=== PATIENT | male | born 1965 | race Caucasian/White ===

== ENCOUNTER 2017-05-20 17:12 | Emergency (ER) | payer BC, MEDICAID ==
[2017-05-20] MEDS ORDERED: Sodium Chloride 0.9% 10 ML Syringe FLUSH PRN (18:23)
[2017-05-20] MEDS ORDERED: Ondansetron 4 MG/2 ML SDV IVPUSH ONE (18:23)
--- NOTE | 2017-05-20 18:27 | EDM.PDOC ---
ED HPI GENERAL MEDICAL PROBLEM - General Chief Complaint: Gastrointestinal Problem Stated Complaint: NAUSEA / VOMITING / LEGS CRAMPS Time Seen by Provider: 05/20/17 18:14 Source of Information: Reports: Patient, RN Notes Reviewed History Limitations: Reports: No Limitations - History of Present Illness INITIAL COMMENTS - FREE TEXT/NARRATIVE: 52-year-old gentleman presents to the emergency department today with complaint of nausea and vomiting as well as diarrhea, diarrhea has been ongoing for some time but the nausea and vomiting recently started 4 days ago he had 2 bouts of emesis today denies any fevers or sick contacts he does admit to night sweats with have been ongoing for the last 6 months - Related Data Allergies Allergy/AdvReac Type Severity Reaction Status Date / Time Penicillins Allergy Cannot Verified 04/19/15 07:50 Remember Home Meds: Home Meds Aspirin [Low Dose Aspirin EC] 81 mg PO DAILY 04/03/15 [History] Fenofibrate,Micronized [Lofibra] 200 mg PO DAILY 04/03/15 [History] Magnesium Oxide [Magnesium] 500 mg PO DAILY 04/03/15 [History] [place]-3 Fatty Acids/Fish Oil [Fish Oil 1,000 mg Softgel] 1 each PO DAILY [History] Ubidecarenone [Coenzyme Q10] 100 mg PO DAILY 04/03/15 [History] Vitamin B Complex [B Complex] 1 each PO DAILY 04/03/15 [History] atorvaSTATin [Lipitor] 20 mg PO DAILY 04/03/15 [History] metFORMIN [Glucophage] 500 mg PO BIDMEALS 04/03/15 [History] Multivitamin with Minerals [Multiple Vitamin] 1 tab PO DAILY 04/19/15 [History] Chlorthalidone 25 mg PO DAILY 05/20/17 [History] Lisinopril 40 mg PO DAILY 05/20/17 [History] Turmeric 05/20/17 [History] Past Medical History HEENT History: Reports: Impaired Vision Cardiovascular History: Reports: High Cholesterol, Hypertension Musculoskeletal History: Reports: Osteoarthritis Endocrine/Metabolic History: Reports: Diabetes, Type II, Obesity/BMI 30+ - Infectious Disease History Infectious Disease History: Reports: Chicken Pox, Measles - Past Surgical History HEENT Surgical History: Reports: Oral Surgery GI Surgical History: Reports: Colonoscopy Social & Family History - Tobacco Use Smoking Status *Q: Heavy Tobacco Smoker Years of Tobacco use: 35 Packs/Tins Daily: 0.5 Second Hand Smoke Exposure: No - Caffeine Use Caffeine Use: Reports: Coffee - Alcohol Use Days Per Week of Alcohol Use: 7 Number of Drinks Per Day: 6 Total Drinks Per Week: 42 - Recreational Drug Use Recreational Drug Use: Yes Recreational Drug Type: Reports: Marijuana/Hashish ED ROS GENERAL - Review of Systems Review Of Systems: See Below Constitutional: Reports: Night Sweats, Other (Scrotal swelling). Denies: Fever , Chills HEENT: Reports: No Symptoms Respiratory: Reports: No Symptoms Cardiovascular: Reports: No Symptoms GI/Abdominal: Reports: Diarrhea, Nausea, Vomiting : Reports: No Symptoms Musculoskeletal: Reports: No Symptoms Skin: Reports: No Symptoms Neurological: Reports: No Symptoms ED EXAM, GI/ABD - Physical Exam Exam: See Below Text/Narrative:: General: Male, not in any distress, alert and oriented x3 HEENT: head is atraumatic normocephalic, eyes pupils equal round reactive to light, sclera clear no conjunctivitis appreciated. Ears tympanic membranes clear and sy landmarks and light reflex are present bilaterally canals are clear. Nose no septal deviation, nares are clear, no blood present. Mouth mucosa is moist and pink no erythema or exudate noted in soft palate, tongue is midline uvula is midline, dentition is intact. Neck: Supple no thyromegaly no tracheal deviation. Nodes: Cervical nodes subclavicular nodes nontender no palpable lymphadenopathy noted. Lungs: clear to auscultation bilaterally with symmetrical respirations, no adventitious noise appreciated. CV: Regular rate and rhythm S1 and S2 appreciated no murmurs rubs or gallops noted. Abdomen: Soft, nontender, no palpable masses or organomegaly appreciated, no distention no guarding bowel sounds are present, . Genitalia exam this is a circumcised male both testes present trace edema is appreciated in the scrotum there is nontender to palpation over the testes or penis no lymphadenopathy appreciated in the groin Neuro: Cranial nerves II through XII grossly intact Skin: Warm and dry, intact Extremities: No lower extremity edema appreciated, Course - Vital Signs Last Recorded V/S: Last Vital Signs Temp 97.1 F 05/20/17 17:47 Pulse 89 05/20/17 18:55 Resp 16 05/20/17 17:47 BP 157/83 H 05/20/17 18:55 Pulse Ox 95 05/20/17 18:55 - Orders/Labs/Meds Orders: Active Orders 24 hr Category Date Time Status Peripheral IV Care [RC] . DIRECTED Care 05/20/17 18:24 Active UA W/MICROSCOPIC [URIN] Urgent Lab 05/20/17 19:33 Ordered Lactated Ringers [Ringers, Lactated] 1,000 ml Med 05/20/17 18:30 Active IV ASDIRECTED Sodium Chloride 0.9% [Saline Flush] Med 05/20/17 18:23 Active 10 ml FLUSH ASDIRECTED PRN ED Antiemetic Medication Reflex [OM.PC] Click to Edit Oth 05/20/17 18:23 Ordered Peripheral IV Insertion Adult [OM.PC] Urgent Oth 05/20/17 18:23 Ordered Medication Orders Lactated Ringer's (Ringers, Lactated) 1,000 mls @ 999 mls/hr IV ASDIRECTED KIRSTIN Last Admin: 05/20/17 18:40 Dose: 999 mls/hr Sodium Chloride (Saline Flush) 10 ml FLUSH ASDIRECTED PRN PRN Reason: Keep Vein Open Last Admin: 05/20/17 18:40 Dose: 10 ml Labs: Laboratory Tests 05/20/17 05/20/17 05/20/17 Range/Units 18:23 18:23 18:23 WBC 9.1 (4.5-11.0) K/uL RBC 4.27 L (4.30-5.90) M/uL Hgb 14.6 (12.0-15.0) g/dL Hct 37.7 L (40.0-54.0) % MCV 88 (80-98) fL MCH 34 H (27-31) pg MCHC 39 H (32-36) % Plt Count 209 (150-400) K/uL Neut % (Auto) 67 H (36-66) % Lymph % (Auto) 20 L (24-44) % [place] % (Auto) 12 H (2-6) % Eos % (Auto) 1 L (2-4) % Baso % (Auto) 0 (0-1) % Sodium 122 L (140-148) mmol/L Potassium 4.0 (3.6-5.2) mmol/L Chloride 83 L (100-108) mmol/L Carbon Dioxide 26 (21-32) mmol/L Anion Gap 17.0 H (5.0-14.0) mmol/L BUN 18 (7-18) mg/dL Creatinine 0.7 L (0.8-1.3) mg/dL Est Cr Clr Drug Dosing 131.97 mL/min Estimated GFR (MDRD) > 60 (>60) Glucose 123 H (74-106) mg/dL Lactic Acid 1.0 (0.4-2.0) mmol/L Calcium 10.1 (8.5-10.1) mg/dL Total Bilirubin 1.2 H (0.2-1.0) mg/dL AST 43 H (15-37) U/L ALT 56 (12-78) U/L Alkaline Phosphatase 56 (46-116) U/L Troponin I < 0.017 (0.000-0.056) ng/mL Total Protein 7.6 (6.4-8.2) g/dL Albumin 4.4 (3.4-5.0) g/dL Globulin 3.2 (2.3-3.5) g/dL Albumin/Globulin Ratio 1.4 (1.2-2.2) Lipase 224 (73-393) U/L TSH, Ultra Sensitive (0.358-3.740) uIU/mL Urine Color Urine Appearance Urine pH (4.5-8.0) Ur Specific [place] (1.008-1.030) Urine Protein (NEGATIVE) mg/dL Urine Glucose (UA) (NEGATIVE) mg/dL Urine Ketones (NEGATIVE) mg/dL Urine Occult Blood (NEGATIVE) Urine Nitrite (NEGAITVE) Urine Bilirubin (NEGATIVE) Urine Urobilinogen (NORMAL) mg/dL Ur Leukocyte Esterase (NEGATIVE) Urine RBC (0-5) Urine WBC (0-5) Ur Epithelial Cells Amorphous Sediment Urine Bacteria Urine Mucus 05/20/17 05/20/17 Range/Units 19:20 19:33 WBC (4.5-11.0) K/uL RBC (4.30-5.90) M/uL Hgb (12.0-15.0) g/dL Hct (40.0-54.0) % MCV (80-98) fL MCH (27-31) pg MCHC (32-36) % Plt Count (150-400) K/uL Neut % (Auto) (36-66) % Lymph % (Auto) (24-44) % [place] % (Auto) (2-6) % Eos % (Auto) (2-4) % Baso % (Auto) (0-1) % Sodium (140-148) mmol/L Potassium (3.6-5.2) mmol/L Chloride (100-108) mmol/L Carbon Dioxide (21-32) mmol/L Anion Gap (5.0-14.0) mmol/L BUN (7-18) mg/dL Creatinine (0.8-1.3) mg/dL Est Cr Clr Drug Dosing mL/min Estimated GFR (MDRD) (>60) Glucose (74-106) mg/dL Lactic Acid (0.4-2.0) mmol/L Calcium (8.5-10.1) mg/dL Total Bilirubin (0.2-1.0) mg/dL AST (15-37) U/L ALT (12-78) U/L Alkaline Phosphatase (46-116) U/L Troponin I (0.000-0.056) ng/mL Total Protein (6.4-8.2) g/dL Albumin (3.4-5.0) g/dL Globulin (2.3-3.5) g/dL Albumin/Globulin Ratio (1.2-2.2) Lipase (73-393) U/L TSH, Ultra Sensitive 2.540 (0.358-3.740) uIU/mL Urine Color Yellow Urine Appearance Clear Urine pH 7.0 (4.5-8.0) Ur Specific [place] 1.010 (1.008-1.030) Urine Protein 100 H (NEGATIVE) mg/dL Urine Glucose (UA) 50 H (NEGATIVE) mg/dL Urine Ketones 15 H (NEGATIVE) mg/dL Urine Occult Blood Negative (NEGATIVE) Urine Nitrite Negative (NEGAITVE) Urine Bilirubin Negative (NEGATIVE) Urine Urobilinogen Normal (NORMAL) mg/dL Ur Leukocyte Esterase Negative (NEGATIVE) Urine RBC 0-5 (0-5) Urine WBC 0-5 (0-5) Ur Epithelial Cells Rare Amorphous Sediment Not seen Urine Bacteria Not seen Urine Mucus Not seen Meds: Medications Generic Name Dose Route Start Last Admin Trade Name Freq PRN Reason Stop Dose Admin Lactated Ringer's 1,000 mls @ 999 mls/hr 05/20/17 18:30 05/20/17 18:40 Ringers, Lactated IV 999 mls/hr ASDIRECTED KIRSTIN Administration Sodium Chloride 10 ml 05/20/17 18:23 05/20/17 18:40 Saline Flush FLUSH 10 ml ASDIRECTED PRN Administration Keep Vein Open Discontinued Medications Generic Name Dose Route Start Last Admin Trade Name Freq PRN Reason Stop Dose Admin Ondansetron HCl 4 mg 05/20/17 18:23 05/20/17 18:40 Zofran IVPUSH 05/20/17 18:24 4 mg ONETIME ONE Administration Departure - Departure Time of Disposition: 20:14 Disposition: Home, Self-Care 01 Condition: Good Clinical Impression: Hyponatremia - Discharge Information Referrals: Murray Blankenship NP [Primary Care Provider] - Forms: ED Department Discharge Additional Instructions: Stop your chlorthalidone, continue lisinopril at 20 mg once a day, please follow -up with your primary care provider on Thursday for recheck of blood pressure and electrolytes, call return to the emergency department worsening of symptoms - My Orders Last 24 Hours: My Active Orders 05/20/17 18:23 Sodium Chloride 0.9% [Saline Flush] 10 ml FLUSH ASDIRECTED PRN ED Antiemetic Medication Reflex [OM.PC] Click to Edit Peripheral IV Insertion Adult [OM.PC] Urgent 05/20/17 18:24 Peripheral IV Care [RC] . DIRECTED 05/20/17 18:30 Lactated Ringers [Ringers, Lactated] 1,000 ml IV ASDIRECTED 05/20/17 19:33 UA W/MICROSCOPIC [URIN] Urgent - Assessment/Plan Last 24 Hours: My Active Orders 05/20/17 18:23 Sodium Chloride 0.9% [Saline Flush] 10 ml FLUSH ASDIRECTED PRN ED Antiemetic Medication Reflex [OM.PC] Click to Edit Peripheral IV Insertion Adult [OM.PC] Urgent 05/20/17 18:24 Peripheral IV Care [RC] . DIRECTED 05/20/17 18:30 Lactated Ringers [Ringers, Lactated] 1,000 ml IV ASDIRECTED 05/20/17 19:33 UA W/MICROSCOPIC [URIN] Urgent Plan: Assessment Acuity = acute Site and laterality = hyponatremia complicated in a patient with known history of diabetes mellitus type 2, hypertension and dyslipidemia Etiology = probably secondary to chlorthalidone Manifestations = none Location of injury = Home Lab values = sodium low at 122 consistent hyponatremia, total bilirubin elevated at 1.2 consistent hyperbilirubinemia urinalysis reveals 100 protein consistent proteinuria 50 of glucose consistent glucose urea and 15 ketones consistent ketonuria Plan He did receive 1 L of lactated Ringer's in combination with Zofran, plan is to discharge him home with Zofran 4 mg ODT 1 tab by mouth 3 times a day when necessary total #15, he is to stop the chlorthalidone continue with his lisinopril 20 mg once a day for blood pressure control he has a follow-up appointment with his primary care provider on Thursday at which time he should have a blood pressure recheck and recheck his electrolytes call return to the emergency department worsening of symptoms This note was dictated using [employer] voice recognition software please call with any questions on syntax or chasity.
[2017-05-20] MEDS ORDERED: Lactated Ringers 1,000 ML IV SCH (18:30)
[2017-05-20 18:55] VITALS: BP 157/83
== END 2017-05-20 20:35 | disposition home or self-care (01) ==
LOC: JP.ED 17:12
DX: E87.1 Hypo-osmolality and hyponatremia (principal); E11.9 Type 2 diabetes mellitus without complications; E66.9 Obesity, unspecified; F17.210 Nicotine dependence, cigarettes, uncomplicated; I10 Essential (primary) hypertension; Z88.0 Allergy status to penicillin; Z79.84 Long term (current) use of oral hypoglycemic drugs
CPT/HCPCS: 36415; 80053; 81001; 83605; 83690; 84443; 84484; 85025; 96361; 96374; 99284; J2405; J7050; J7120

== ENCOUNTER 2018-06-10 07:02 | Day surgery (SDC) | payer MEDICAID ==
[2018-06-10] MEDS: Sodium Chloride 0.9% 1,000 ML IV SCH (07:19)
[2018-06-10] MEDS ORDERED: fentaNYL 100 MCG/2 ML SDV ONE (08:21)
[2018-06-10] MEDS ORDERED: Propofol 200 MG/20 ML SDV ONE ×2 (08:21→10:05)
[2018-06-10] MEDS ORDERED: Midazolam 1 MG/ML 2 ML SDV ONE (08:21)
[2018-06-10 10:29] VITALS: BP 105/66
--- NOTE | 2018-06-11 07:47 | OR ---
DATE OF PROCEDURE: 06/10/2018 SURGEON: Dominic Perrin MD PROCEDURE: Colonoscopy. FINDINGS: Rectal polyp, approximately 5 mm, completely removed using cold biopsy forceps. COMPLICATIONS: None. MANAGER HUMAN RESOURCES: None. ANESTHESIA: MAC. PREOPERATIVE DIAGNOSIS: Screening colonoscopy. POSTOPERATIVE DIAGNOSIS: Screening colonoscopy. RISKS: Risks, benefits, alternatives, and limitations including, but not limited to infection, bleeding, and perforation were explained to the patient, who wished to proceed. PROCEDURE IN DETAIL: The patient was placed in left lateral decubitus position. Digital rectal exam was performed without abnormality. Scope was introduced and advanced atraumatically to the ileocecal valve. A photo was taken of this. The scope was brought back through the ascending, transverse, descending colon, and retroflexed. No evidence of old or new blood. No masses. In the rectum, a 5-mm polyp was identified and completely removed. No abnormal bleeding was noted after this. No abnormalities on retroflex. The patient tolerated the procedure well. Dominic Perrin MD /[id number]
== END 2018-06-10 10:46 | disposition home or self-care (01) ==
LOC: JP.SDS 07:02
PROVIDERS: ATTEND Surgery
DX: Z12.11 Encounter for screening for malignant neoplasm of colon (principal); K62.1 Rectal polyp; I10 Essential (primary) hypertension; E11.9 Type 2 diabetes mellitus without complications; E78.5 Hyperlipidemia, unspecified; F17.200 Nicotine dependence, unspecified, uncomplicated; Z88.0 Allergy status to penicillin; Z86.010 Personal history of colon polyps
CPT/HCPCS: 45380; 88305; J2250; J2704; J3010; J7030

== ENCOUNTER 2019-02-28 10:54 | Day surgery (SDC) | payer MEDICAID ==
[~2019-02-28 10:54] MED LIST: Bupivacaine 0.5% 30 ML SDV ONE; Lidocaine 2% 20 ML MDV ONE
[2019-02-28] MEDS ORDERED: Lactated Ringers 1,000 ML IV SCH (11:51)
[2019-02-28] MEDS ORDERED: Lactated Ringers 500 ML IV SCH (12:15)
[2019-02-28] MEDS ORDERED: Clindamycin Phosphate 900 MG in Sodium Chloride 0.9% 100 ML IV ONE (12:30)
[2019-02-28] MEDS ORDERED: Midazolam 1 MG/ML 2 ML SDV ONE ×2 (12:57→13:32)
[2019-02-28] MEDS ORDERED: fentaNYL 100 MCG/2 ML SDV ONE (12:57)
[2019-02-28] MEDS ORDERED: Propofol 200 MG/20 ML SDV ONE (12:57)
--- NOTE | 2019-02-28 15:39 | OR ---
DATE OF PROCEDURE: 02/28/2019 SURGEON: Adis Carter DPM CONSTRUCTION SITE MANAGER: None. PREOPERATIVE DIAGNOSIS: Tailor's bunion with painful sesamoids, right foot. POSTOPERATIVE DIAGNOSIS: Tailor's bunion with painful sesamoids, right foot. PROCEDURES: 1. Excision of sesamoids, sub fifth metatarsal head, right foot. 2. Simple tailor's bunionectomy, right foot. ANESTHESIA: Local with IV sedation. HEMOSTASIS: Obtained with an ankle tourniquet on the right ankle at 250 mmHg. ESTIMATED BLOOD LOSS: 5 mL. MATERIALS: None. INJECTABLES: A total of 10 mL of a 1:1 mixture of lidocaine 2% plain and Marcaine 0.5% plain were injected preoperatively. PATHOLOGY: None. CONDITION: Stable. INDICATIONS FOR SURGERY: Painful tailor's bunion with painful sesamoids, right foot, that was unresponsive to conservative measures. PROCEDURE IN DETAIL: The patient was brought to the operating room and placed on the operating table in supine position. Following IV sedation, anesthesia was obtained with a total of 10 mL of a 1:1 mixture of lidocaine 2% plain and Marcaine 0.5% plain. The right foot was scrubbed, prepped, and draped in the usual aseptic manner and raised to 60 degrees for hemostasis and exsanguinated using Esmarch bandage. Tourniquet was inflated. Foot was lowered to table. Skin incision was made on the dorsolateral aspect of the right fifth metatarsal. Incisions were deepened through subcutaneous tissues with care taken to identify and retract all vital neurovascular structures. Incision was then made into the joint capsule of the right fifth metatarsophalangeal joint, and the capsule was carefully dissected off the fifth metatarsal head. The lateral eminence on the right fifth metatarsal head was removed with a sagittal saw and then smoothed off with a reciprocating rasp. We then removed the sesamoids underneath the fifth metatarsal head. Then, we confirmed that they were removed both visually and fluoroscopically. The incision was flushed out with copious amounts of sterile saline. The capsular closure was obtained with 3-0 Vicryl and skin closure with 4-0 Prolene in a simple interrupted configuration. The patient's foot was then dressed with Xeroform, 4x4s, Kerlix, and Coban. The patient was returned to the recovery room with vital signs stable and vascular status intact to both feet. The patient was told to rest, ice, and elevate the right foot, maintain nonweightbearing on the right foot for three weeks and return to clinic for followup in one week, at which time, he will be re-evaluated. The patient was told to go to the emergency room immediately if he has any nausea, vomiting, fever, chills, chest pain, calf pain, or difficulty breathing. Adis Carter DPM /[id number]
[2019-02-28 15:41] VITALS: BP 120/69; PULSE 80
== END 2019-02-28 15:35 | disposition home or self-care (01) ==
LOC: JP.SDS 10:54
PROVIDERS: ATTEND Podiatrist Foot & Ankle Surgery
DX: M21.621 Bunionette of right foot (principal); I10 Essential (primary) hypertension; E78.5 Hyperlipidemia, unspecified; E11.9 Type 2 diabetes mellitus without complications; K21.9 Gastro-esophageal reflux disease without esophagitis; F17.210 Nicotine dependence, cigarettes, uncomplicated; E66.9 Obesity, unspecified; Z68.36 Body mass index [BMI] 36.0-36.9, adult; Z79.84 Long term (current) use of oral hypoglycemic drugs; Z79.899 Other long term (current) drug therapy; Z88.0 Allergy status to penicillin
CPT/HCPCS: J2001; J2250; J2704; J3010; J3490; J7120

== ENCOUNTER 2021-01-09 13:22 | Emergency (ER) | payer MEDICAID ==
[2021-01-09 14:56] VITALS: BP 121/94; PULSE 94
--- NOTE | 2021-01-09 15:35 | EDM.PDOC ---
ED HPI GENERAL MEDICAL PROBLEM - General Chief Complaint: Wound Recheck Stated Complaint: WOUND ON RT LEG Time Seen by Provider: 01/09/21 15:29 Source of Information: Reports: Patient, Provider, RN Notes Reviewed History Limitations: Reports: No Limitations - History of Present Illness INITIAL COMMENTS - FREE TEXT/NARRATIVE: 55-year-old gentleman presents emergency department today sent over from clinic he was initially evaluated by one of the midlevel's at the walk-in clinic. He states over the last couple days he has noticed increased warmth redness and drainage from a wound that he has on his right lower leg. He injured himself when he thinks he may be scraped onto something he does have a known history of diabetes - Related Data Allergies Allergy/AdvReac Type Severity Reaction Status Date / Time Penicillins Allergy Cannot Verified 01/09/21 15:00 Remember Home Meds: Home Meds Aspirin [Low Dose Aspirin EC] 81 mg PO DAILY 04/03/15 [History] Magnesium Oxide [Magnesium] 200 mg PO BIDMEALS 04/03/15 [History] Ubidecarenone [Coenzyme Q10] 100 mg PO DAILY 04/03/15 [History] Vitamin B Complex [B Complex] 1 each PO DAILY 04/03/15 [History] atorvaSTATin [Lipitor] 20 mg PO DAILY 04/03/15 [History] metFORMIN [Glucophage] 500 mg PO BIDMEALS 04/03/15 [History] Multivitamin with Minerals [Multiple Vitamin] 1 tab PO DAILY 04/19/15 [History] Turmeric 1 tab PO DAILY 05/20/17 [History] amLODIPine Besylate [Amlodipine Besylate] 10 mg PO DAILY 06/08/18 [History] gemfibroziL [Lopid] 600 mg PO DAILY 06/08/18 [History] Lisinopril/Hydrochlorothiazide [Zestoretic 20-12.5 mg Tablet] 1 tab PO DAILY 02/25/19 [History] Sulfamethoxazole/Trimethoprim [Bactrim Ds Tablet] 1 each PO BID #14 tablet 1 03/12/20 [Rx] Past Medical History HEENT History: Reports: Impaired Vision Other HEENT History: wears glasses Cardiovascular History: Reports: High Cholesterol, Hypertension Gastrointestinal History: Reports: Colon Polyp, GERD Musculoskeletal History: Reports: Osteoarthritis Endocrine/Metabolic History: Reports: Diabetes, Type II, Obesity/BMI 30+ - Infectious Disease History Infectious Disease History: Reports: Chicken Pox, Measles - Past Surgical History HEENT Surgical History: Reports: Oral Surgery GI Surgical History: Reports: Colonoscopy Social & Family History - Family History Family Medical History: No Pertinent Family History - Tobacco Use Tobacco Use Status *Q: Current Every Day Tobacco User Years of Tobacco use: 31 Packs/Tins Daily: 0.5 - Caffeine Use Caffeine Use: Reports: None - Alcohol Use Days Per Week of Alcohol Use: 5 Number of Drinks Per Day: 3 Total Drinks Per Week: 15 - Recreational Drug Use Recreational Drug Use: Yes Recreational Drug Type: Reports: Marijuana/Hashish Review of Systems - Review of Systems Review Of Systems: See Below Respiratory: Reports: No Symptoms Cardiovascular: Reports: No Symptoms GI/Abdominal: Reports: No Symptoms Musculoskeletal: Reports: Leg Pain Skin: Reports: Pallor, Rash, Wound, Change in Color ED EXAM, GENERAL - Physical Exam Exam: See Below Free Text/Narrative:: Examination the wound to the lower extremity is erythematous he does have an open wound with some drainage probably about the size of a softball is warm to the touch, tender to the touch pedal pulses +2 full range of motion all digits it is markedly enlarged compared to the left leg Exam Limited By: No Limitations General Appearance: Alert, WD/WN, No Apparent Distress Respiratory/Chest: No Respiratory Distress Course - Vital Signs Last Recorded V/S: Last Vital Signs Temp 97.9 F 01/09/21 15:04 Pulse 94 01/09/21 15:04 Resp 16 01/09/21 15:04 BP 121/94 H 01/09/21 15:04 Pulse Ox 97 01/09/21 15:04 - Orders/Labs/Meds Labs: Laboratory Tests 01/09/21 01/09/21 01/09/21 Range/Units 15:31 16:32 16:32 WBC 9.2 (4.5-11.0) K/uL RBC 3.03 L (4.30-5.90) M/uL Hgb 10.7 L D (12.0-15.0) g/dL Hct 29.8 L (40.0-54.0) % MCV 98 (80-98) fL MCH 35 H (27-31) pg MCHC 36 (32-36) % Plt Count 280 (150-400) K/uL Neut % (Auto) 66.7 H (36-66) % Lymph % (Auto) 17.4 L (24-44) % [place] % (Auto) 13.9 H (2-6) % Eos % (Auto) 1.4 L (2-4) % Baso % (Auto) 0.6 (0-1) % Sodium 124 L (140-148) mmol/L Potassium 4.2 (3.6-5.2) mmol/L Chloride 87 L (100-108) mmol/L Carbon Dioxide 27 (21-32) mmol/L Anion Gap 14.2 H (5.0-14.0) mmol/L BUN 18 (7-18) mg/dL Creatinine 1.1 D (0.8-1.3) mg/dL Est Cr Clr Drug Dosing 77.42 mL/min Estimated GFR (MDRD) > 60 (>60) Glucose 143 H (74-106) mg/dL Lactic Acid 1.3 (0.4-2.0) mmol/L Calcium 8.9 (8.5-10.1) mg/dL C-Reactive Protein (0.0-0.3) mg/dL 01/09/21 Range/Units 16:32 WBC (4.5-11.0) K/uL RBC (4.30-5.90) M/uL Hgb (12.0-15.0) g/dL Hct (40.0-54.0) % MCV (80-98) fL MCH (27-31) pg MCHC (32-36) % Plt Count (150-400) K/uL Neut % (Auto) (36-66) % Lymph % (Auto) (24-44) % [place] % (Auto) (2-6) % Eos % (Auto) (2-4) % Baso % (Auto) (0-1) % Sodium (140-148) mmol/L Potassium (3.6-5.2) mmol/L Chloride (100-108) mmol/L Carbon Dioxide (21-32) mmol/L Anion Gap (5.0-14.0) mmol/L BUN (7-18) mg/dL Creatinine (0.8-1.3) mg/dL Est Cr Clr Drug Dosing mL/min Estimated GFR (MDRD) (>60) Glucose (74-106) mg/dL Lactic Acid (0.4-2.0) mmol/L Calcium (8.5-10.1) mg/dL C-Reactive Protein 9.36 H (0.0-0.3) mg/dL Departure - Departure Time of Disposition: 17:32 Disposition: Home, Self-Care 01 Condition: Fair Clinical Impression: Cellulitis of leg, right - Discharge Information Prescriptions: Sulfamethoxazole/Trimethoprim [Bactrim Ds Tablet] 1 each PO BID #14 tablet Instructions: Cellulitis, Adult Referrals: Murray Blankenship, AUDIO OPERATOR [Primary Care Provider] - Forms: ED Department Discharge Additional Instructions: Take full course of antibiotics, please call to the [facility] in the morning for an appointment time with Dr. Perrin from wound care call return to the emergency department worsening of symptoms. Your antibiotics have been faxed to [facility] Sepsis Event Note (ED) - Evaluation Sepsis Screening Result: No Definite Risk - Focused Exam Vital Signs: Vital Signs Temp Pulse Resp BP Pulse Ox 01/09/21 15:04 97.9 F 94 16 121/94 H 97 01/09/21 14:55 97.9 F 94 16 121/94 H 97 - Assessment/Plan Plan: Assessment Acuity = acute Site and laterality = cellulitis right lower leg Etiology = probable bacterial cause Manifestations = none Location of injury = Home Lab values = CBC unremarkable other than hemoglobin low at 10.7 consistent normochromic anemia sodium low at 124 consistent hyponatremia this is chronic CRP elevated 9.36 Plan Call discussed case Dr. Hardy general surgery recommend follow-up in wound care start antibiotics. Consultation to see Dr. Perrin from wound care next available appointment. Antibiotics Bactrim 1 tab p.o. twice daily x10 days This note was dictated using [employer] recognition software please call with any questions on syntax or grammar.
== END 2021-01-09 17:51 | disposition home or self-care (01) ==
LOC: JP.ED 13:22
DX: L03.115 Cellulitis of right lower limb (principal); E78.00 Pure hypercholesterolemia, unspecified; I10 Essential (primary) hypertension; E11.9 Type 2 diabetes mellitus without complications; E66.9 Obesity, unspecified; Z88.0 Allergy status to penicillin; Z79.82 Long term (current) use of aspirin; Z72.0 Tobacco use; Z68.34 Body mass index [BMI] 34.0-34.9, adult; Z79.899 Other long term (current) drug therapy
CPT/HCPCS: 36415; 80048; 83605; 85025; 86140; 99283

== ENCOUNTER 2021-01-31 07:23 | Day surgery (SDC) | payer MEDICAID ==
[~2021-01-31 07:23] MED LIST changes: -Bupivacaine 0.5% 30 ML SDV ONE; +Bupivacaine 0.5% 50 ML MDV ONE; +Lidocaine 1% with EPINEPHrine 1:100,000 50 ML MDV ONE; -Lidocaine 2% 20 ML MDV ONE
[2021-01-31] MEDS ORDERED: fentaNYL 100 MCG/2 ML SDV ONE (07:41)
[2021-01-31] MEDS ORDERED: Midazolam 1 MG/ML 2 ML SDV ONE (07:41)
[2021-01-31] MEDS ORDERED: Propofol 200 MG/20 ML SDV ONE (07:41)
[2021-01-31] MEDS ORDERED: Sodium Chloride 0.9% 1,000 ML IV SCH (08:00)
[2021-01-31 09:47] VITALS: BP 127/80; PULSE 72
--- NOTE | 2021-01-31 12:48 | OR ---
DATE OF PROCEDURE: 01/31/2021 SURGEON: Dominic Perrin MD PROCEDURE: Colonoscopy. FINDINGS: Normal colonoscopy. COMPLICATIONS: None. FIELD RING ASSEMBLER: None. PREOPERATIVE DIAGNOSIS: Screening colonoscopy. POSTOPERATIVE DIAGNOSIS: Screening colonoscopy. RISKS: Risks, benefits, alternatives, and limitations including, but not limited to infection, bleeding, perforation, false positives and false negatives were explained to the patient who wished to proceed. PROCEDURE IN DETAIL: The patient was placed in a left lateral decubitus position. Digital rectal exam was performed without abnormality. Scope was introduced atraumatically to the ileocecal valve. A photo was taken of this. Scope was brought back to the ascending, transverse, descending colon, and retroflexed. No evidence of old or new blood. No masses. No polyps. No abnormalities on retroflexion. Greater than 8 minutes was spent removing the scope. Prep was acceptable, approximately 90% of the luminal surface could be seen. The patient tolerated the procedure well. Dominic Perrin MD /[id number]
== END 2021-01-31 10:10 | disposition home or self-care (01) ==
LOC: JP.SDS 07:23
PROVIDERS: ATTEND Surgery
DX: Z12.11 Encounter for screening for malignant neoplasm of colon (principal); F17.200 Nicotine dependence, unspecified, uncomplicated; I10 Essential (primary) hypertension; E78.5 Hyperlipidemia, unspecified; E11.9 Type 2 diabetes mellitus without complications; E66.9 Obesity, unspecified; Z88.0 Allergy status to penicillin; Z68.34 Body mass index [BMI] 34.0-34.9, adult
CPT/HCPCS: 45378; 87070; 87075; 87077; 87186; 87205; J0690; J2250; J2704; J3010; J3490; J7030

== ENCOUNTER 2021-09-30 21:42 | Emergency (ER) | payer MEDICAID, OTHER ==
[2021-09-30] MEDS ORDERED: Sodium Chloride 0.9% 10 ML Syringe FLUSH PRN (22:06)
[2021-09-30] MEDS ORDERED: Sodium Chloride 0.9% 100 ML IV SCH (22:15)
[2021-09-30] MEDS ORDERED: Iopamidol 755 Mg/ML 100 ML Bottle IV SCH (22:15)
[2021-09-30] MEDS ORDERED: Sodium Chloride 0.9% 1,000 ML IV SCH (22:15)
[2021-09-30 22:32] LABS: ESTIMATED GFR 103 mL/min (>60); TROPONIN I HIGH SENSITIVITY 6.4 pg/mL (<=60.3)
[2021-10-01] MEDS: Clopidogrel 75 MG Tab PO SCH ×2 (01:51→19:26)
[2021-10-01] MEDS ORDERED: metFORMIN 500 MG Tab PO SCH (08:00)
[2021-10-01] MEDS ORDERED: Tamsulosin 0.4 MG Cap.ER PO SCH ×2 (09:30→21:00)
[2021-10-01] MEDS ORDERED: Lisinopril 20 MG Tab PO SCH (09:30)
[2021-10-01] MEDS ORDERED: atorvaSTATin 20 MG Tab PO SCH ×2 (09:30→21:00)
[2021-10-01] MEDS ORDERED: Fenofibrate 54 MG Tab PO SCH ×2 (09:30→21:00)
[2021-10-01] MEDS ORDERED: Aspirin 81 MG Tab.EC PO SCH (09:30)
[2021-10-01] MEDS ORDERED: Hydrochlorothiazide 25 MG Tab PO SCH (09:30)
[2021-10-01] MEDS ORDERED: Vitamin B Complex Tab PO SCH (09:30)
[2021-10-01] MEDS ORDERED: amLODIPine 5 MG Tab PO SCH (09:30)
[2021-10-01] MEDS ORDERED: Multivitamins with Iron/Calcium/Folic Acid/Minerals Tab PO SCH ×2 (09:30→21:00)
[2021-10-01 17:56] VITALS: BP 134/88; PULSE 77
[2021-10-01] MEDS ORDERED: Famotidine 20 MG Tab PO SCH (21:00)
[2021-10-02] MEDS ORDERED: Non-Formulary Medication 1 Each (Lisinopril/Hydrochlorothiazide [Zestoretic 20-12.5 Mg Tab PO SCH (09:00)
[2021-10-02] MEDS ORDERED: UBIDECARENONE 100 MG PO SCH (09:00)
[2021-10-02] MEDS ORDERED: TURMERIC 1 GM PO SCH (09:00)
== END 2021-10-01 19:35 | disposition home or self-care (01) ==
LOC: JP.ED 21:42
DX: G45.9 Transient cerebral ischemic attack, unspecified (principal); I10 Essential (primary) hypertension; E11.9 Type 2 diabetes mellitus without complications; F17.210 Nicotine dependence, cigarettes, uncomplicated; E66.9 Obesity, unspecified; Z68.35 Body mass index [BMI] 35.0-35.9, adult; Z88.0 Allergy status to penicillin; Z79.899 Other long term (current) drug therapy; Z79.82 Long term (current) use of aspirin; Z20.822 Contact with and (suspected) exposure to COVID-19
CPT/HCPCS: 36415; 70450; 70496; 70498; 80053; 83605; 84484; 85025; 87635; 93005; 96360; 96361; 99285; A9270; J3490; J7030; Q9967; U0002